=== PATIENT | male | born 1940 | race Caucasian/White ===

== ENCOUNTER 2022-04-07 05:19 | Inpatient (IN) ==
[2022-04-07] MEDS ORDERED: SODIUM CHLORIDE 0.9% 250 ML IV PRN (11:37)
[2022-04-07] MEDS ORDERED: NOREPINEPHRINE/D5W 4 MG/250 ML IV ONE (11:44)
[2022-04-07] MEDS ORDERED: STAT IV Infusion **Titration per Protocol STA (11:47)
--- NOTE | 2022-04-07 11:50 | Critical Care Consultation ---
Date of Consultation April 07, 2022 Assessment & Plan (1) Shock circulatory: (2) COPD with emphysema: (3) Peripheral vascular disease: (4) Acute abdomen: (5) Acute lower limb ischemia: (6) Lactic acidosis: (7) Acute blood loss anemia: Plan Reason Critically Ill: 81-year-old male past medical history of COPD, peripheral vascular disease was transferred from hospital with acute limb ischemia. Neuro - [facility] ICU: Negative Cardiac - -- Shock Could be intra-abdominal plus GI Needed with vasopressor support to keep MAP greater than 65 2D echo 10/07/2021: EF 55%, RV normal in size and function Respiratory - -- Acute on chronic hypoxic respiratory failure Continue without supervision to keep oxygen saturation between 90-92% --History of PE On rivaroxaban at home --COPD with emphysema Not on any inhalers at home Start the patient on Brovana and budesonide -- Pulmonary nodules Outpatient follow-up GI - -- Positive occult blood Continue to monitor RENAL/LYTES - Monitor BUNs/creatinine Avoid nephrotoxic medication - Taken with [facility] - Continue with ICU hyperglycemia protocol HEME - -- Acute on chronic anemia Status post 1 unit PRBC Keep hemoglobin greater than 7 ID - -- Give empiric antibiotic for at least 24 hours --Prophylaxis VTE: Heparin drip GI: Pantoprazole twice daily Lines: Right IJ Diet: N.p.o. Plan: Give 500 bolus of normal so followed by 150 mL NR Get CBC, CMP, mag and Phos along with lactate. Follow-up ABG Type and screen Start patient on budesonide and Brovana for underlying COPD with emphysema I will start the patient on empiric Zosyn given the acute abdomen. Monitor H&H, transfuse as needed Given the rigid abdomen. Urgent surgical consult has been placed. Dr. Carson personally spoke with Dr. Sousa Patient pending surgical intervention as soon as possible I have personally spent 63 minutes of critical care time in the direct management of this patient. This is a life/limb threatening event. This includes time spent evaluating patient, direct bedside care, chart review, placing orders, interpretation of diagnostic studies, discussion with consultants, patient, and family members, as well as other required patient management activities. This time is exclusive of all separately billable procedures, and teaching time and separate from and in addition to any other critical care service time. History of Present Illness Attending Physician: Velasquez Carson MD History of Present Illness 81-year-old male was transferred from an outside facility for severe abdominal pain and lower extremity pain Past medical history: COPD, peripheral vascular disease with known abdominal aortic aneurysm, dyslipidemia and hypertension At the time of examination patient was on 0.65 of Levophed with MAP in the 80s He had gotten 1 unit of blood as well as 1 L of bolus prior to coming to the hospital Patient was seen severe abdominal pain and in distress. He is a poor historian. Denies any nausea vomiting the only thing complaint was abdominal pain and pain going into his bilateral groin and lower legs. No shortness of breath No headache, no nausea, no vomiting Has been afebrile. Was actually hypothermic and bear hugger was started Allergies Allergy/AdvReac Type Severity Reaction Status Date / Time No Known Allergies Allergy Verified 03/26/22 16:34 Home Medications Medication Instructions Recorded Confirmed Type aspirin 81 mg capsule 81 mg PO QAM 03/26/22 03/26/22 History atorvastatin 40 mg tablet 40 mg PO HS 03/26/22 03/26/22 History cilostazol 50 mg tablet 50 mg PO BID 03/26/22 03/26/22 History esomeprazole magnesium 40 mg 40 mg PO QAM 03/26/22 03/26/22 History capsule,delayed release multivitamin-ferrous 1 tab PO QAM 03/26/22 03/26/22 History fumarate-folic acid 18 mg-400 mcg tablet (Centrum) nifedipine 60 mg tablet,extended 60 mg PO QAM 03/26/22 03/26/22 History release rivaroxaban 15 mg tablet (Xarelto) 15 mg PO BID 03/26/22 03/26/22 History Patient History Medical History (Updated 04/07/22 @ 12:42 by Ashley Quintero MD, [facility]) Anemia GERD (gastroesophageal reflux disease) controlled, stable per pt Melanoma hx of on right shoulder Myocardial Infarction hx of 30yrs ago--follows with [facility] Neuropathy bilt, 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--uses cane for ambulation On anticoagulant therapy xarelto Peripheral artery disease Surgical History (Updated 03/26/22 @ 16:46 by Annalisa Recinos RN) History of appendectomy History of bilateral cataract extraction History of cardiac cath 30yrs ago @ [facility]--no stents placed History of colonoscopy History of left inguinal hernia repair History of Mohs micrographic surgery for skin cancer History of tonsillectomy and adenoidectomy History of tooth extraction all teeth removed Family History (Updated 03/26/22 @ 16:46 by Annalisa Recinos RN) Other No family history of adverse response to anesthesia Social History Smoking Status: Current every day smoker Cigarettes Per Day: smokes pipe daily-advised; Second Hand Exposure: No; Hx Alcohol Use: Yes Hx Substance Use: No Preferred Language: Khmer Communication Ability: Effective Secret Code Expert Required: No Beliefs That Will Affect Care: None Current Living Situation: Spouse Feels Safe at Home: Yes Assistive Devices: Cane, Denture - Upper, Denture - Lower and Glasses Review of Systems Review of Systems: All systems reviewed & are unremarkable except as noted in HPI & below Physical Exam Physical Exam: Constitutional: In acute distress HEENT: EOMI, PERRLA Respiratory system: Decreased air entry bilaterally, no wheeze, rhonchi, positive crackles bilateral lower lobes CVS: S1-S2 positive, no murmurs or gallops Abdomen: Diffuse abdominal tenderness, positive rebound,, decreased bowel sounds x4 Extremities: +1 pulses bilaterally radialis, feeble pulse bilateral dorsalis pedis, no cyanosis, no edema, cold lower extremities Neuro: Awake alert oriented to self Psych: Normal mood and affect G/U: Positive [facility] C[facility] Level of Care Code Critical Care 1st 30-74 mins Diagnoses Shock circulatory R57.9 COPD with emphysema J43.9 Peripheral vascular disease I73.9 Acute abdomen R10.0 Acute lower limb ischemia I99.8 Lactic acidosis E87.20 Acute blood loss anemia D62 Time Spent (min) 63
[2022-04-07] MEDS ORDERED: VASOPRESSIN 20 UNITS in 0.9 % SODIUM CHLORIDE 100 ML IV SCH (12:00)
--- NOTE | 2022-04-07 12:23 | Procedure Note ---
Procedure Note Date of Service April 07, 2022 Note Procedure: Inserting ultrasound-guided central line maintenance: Dr. Ashley Quintero Indication: Hypotension Consent: Emergent consent was implied. Verbal consent was also obtained prior to procedure Anesthesia: 1% lidocaine without epinephrine local. Procedure: Consent was verified and timeout performed. Appropriate imaging studies were reviewed prior to the procedure. Under aseptic and sterile condition, right IJ vein was accessed under direct ultrasound guidance. Guidewire was confirmed to be within the lumen of vein with the help of ultrasound. Catheter was introduced via Seldinger technique. Guide a wire was removed. Good non-pulsatile blood flow was appreciated from all the ports. The catheter was placed at 16 cm and sutured in place. BioPatch was applied to the catheter and a sterile Tegaderm dressing was applied over the catheter with careful attention to sterility. Lung sliding was appreciated post procedure with the help ultrasound. Chest x-ray to follow Patient tolerated the procedure well. Blood loss: Less than 1 cc Complications: None Coding CPT Codes Tubes, Drains, and Vasc Access - Tubes, Drains, and Vasc Access: [id number] Place catheter in vein superior or inferior vena cava ([id number]) Tubes, Drains, and Vasc Access - Tubes, Drains, and Vasc Access: [id number] Ultrasound Guidance For Vascular ([id number]) [facility] [place] Procedure Codes (Charges) Tubes, Drains, and Vasc Access Procedure 1: Tubes, Drains, and Vasc Access: [id number] Place catheter in vein superior or inferior vena cava Procedure 2: Tubes, Drains, and Vasc Access: [id number] Ultrasound Guidance For Vascular
--- NOTE | 2022-04-07 12:31 | Electrocardiogram Report ---
Test Reason : Blood Pressure : / mmHG Vent. Rate : 083 BPM Atrial Rate : 078 BPM P-R Int : 000 ms QRS Dur : 102 ms QT Int : 424 ms P-R-T Axes : 000 087 -40 degrees QTc Int : 498 ms Sinus rhythm Low voltage QRS Diffuse Minor Nonspecific ST abnormality Abnormal ECG When compared with ECG of 03-APR-2022 12:19, No significant change Confirmed by Rodrigo Lemus ([id number]) on 04/07/2022 12:31:20 PM Referred By: Velasquez Carson Confirmed By:Rodrigo Lemus
[2022-04-07] MEDS ORDERED: DEXTROSE 50% 50 ML SYRINGE IV ONE (12:36)
[2022-04-07] MEDS: NOREPINEPHRINE/D5W 4 MG/250 ML PLCT IV SCH ×2 (12:40→14:31)
[2022-04-07] MEDS ORDERED: PANTOprazole 40 MG in SYRINGE 0 ML IV SCH (12:45)
[2022-04-07] MEDS ORDERED: D5W AND NSS 1,000 ML IV SCH (12:45)
[2022-04-07] MEDS ORDERED: PIPERACILLIN/TAZOBACTAM 4.5 GM in DEXTROSE 5% 100 ML IV ONE (12:45)
[2022-04-07 12:53] LABS: Base Excess VBG -22.8 mEq/L; HCO3 VBG 7 mmol/L; Oxygen Saturation VBG 75.5 %; PCO2 VBG 29 mmHg (38-50); PO2 VBG 52 mmHg; pH VBG < 7.00 (7.36-7.41)
[2022-04-07 12:55] LABS: iSTAT Arterial Blood Gas HCO3 7 meg/L (19-24); iSTAT Arterial Blood Gas pCO2 28 mmHg (35-46); iSTAT Arterial Blood Gas pH 7.02 (7.35-7.45); iSTAT Arterial Blood Gas pO2 39 mmHg (80-95); iSTAT Carbon Dioxide 8 mmol/L (24-31); iSTAT Site R Brachial
--- NOTE | 2022-04-07 12:57 | History & Physical Report ---
Date of Service April 07, 2022 Assessment & Plan (1) Acute abdomen: Plan: consult general surgery for acute abdomen (2) Peripheral vascular disease: Plan: Does not appear to have lower extremity acute ischemia. 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 Concern is for intestional ischemia Will re evaluate with contrast CT once he is stabalized. Admission and Anticipated Discharge Date Admission Date: April 07, 2022 History of Present Illness Chief Complaint: Abdominal pain Primary Care Provider: Becky Saavedra PA-C This is an 81yo male who was scheduled for dagoberto femoral endarterectomy with dagoberto iliac stenting next week. i received a call from [facility] about him developing left leg discomfort, coldness, and unable to move. He was transferred here for this. Upon arrival he was found to be hypotensive on levophed. He had blood running for an anemia of 7.0. He was complaining of abdominal pain. He can not get comfortable from his pain. He claims it started a few days prior to this with nausea. He cant remember his last BM. He denies any leg pain at this time. Allergies Allergy/AdvReac Type Severity Reaction Status Date / Time No Known Allergies Allergy Verified 03/26/22 16:34 Home Medications Medication Instructions Recorded Confirmed Type aspirin 81 mg capsule 81 mg PO QAM 03/26/22 03/26/22 History atorvastatin 40 mg tablet 40 mg PO HS 03/26/22 03/26/22 History cilostazol 50 mg tablet 50 mg PO BID 03/26/22 03/26/22 History esomeprazole magnesium 40 mg 40 mg PO QAM 03/26/22 03/26/22 History capsule,delayed release multivitamin-ferrous 1 tab PO QAM 03/26/22 03/26/22 History fumarate-folic acid 18 mg-400 mcg tablet (Centrum) nifedipine 60 mg tablet,extended 60 mg PO QAM 03/26/22 03/26/22 History release rivaroxaban 15 mg tablet (Xarelto) 15 mg PO BID 03/26/22 03/26/22 History Past Med/Surg History Medical History Anemia GERD (gastroesophageal reflux disease) controlled, stable per pt Melanoma hx of on right shoulder Myocardial Infarction hx of 30yrs ago--follows with [facility] Neuropathy bilt, 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--uses cane for ambulation On anticoagulant therapy xarelto Peripheral artery disease Surgical History History of appendectomy History of bilateral cataract extraction History of cardiac cath 30yrs ago @ [facility]--no stents placed History of colonoscopy History of left inguinal hernia repair History of Mohs micrographic surgery for skin cancer History of tonsillectomy and adenoidectomy History of tooth extraction all teeth removed Family History Other No family history of adverse response to anesthesia Social History Smoking Status: Current every day smoker Cigarettes Per Day: smokes pipe daily-advised; Second Hand Exposure: No; Hx Alcohol Use: Yes Hx Substance Use: No Preferred Language: Yi Communication Ability: Effective Mangle Feeder Required: No Beliefs That Will Affect Care: None Current Living Situation: Spouse Feels Safe at Home: Yes Assistive Devices: Cane, Denture - Upper, Denture - Lower and Glasses Review of Systems All systems reviewed & are unremarkable except as noted in HPI & below severe claudication Physical Exam Constitutional: + cachectic Respiratory: + abnormal respiratory effort and no respiratory distress Auscultation: + diminished lung sounds Cardiovascular: Rate/Rhythm: regular rate and regular rhythm Vessels: + femoral pulses abnormal (+1 on right, doppler on the left), + posterior tibial pulses abnormal and + dorsalis pedis pulses abnormal Extremities: + abnormal capillary refill Gastrointestinal (Abdomen): Percussion/Palpation: + abdomen tender, + guarding, + abdomen rigid and + abdominal aortic enlargement Musculoskeletal: Extremities: extremities normal to inspection Neurologic: CN's II-XI intact bilaterally Psychiatric: Orientation: alert Code Status & VTE Plan VTE Prophylaxis Plan VTE Prophylaxis will be ordered: Yes
[2022-04-07] MEDS ORDERED: Heparin IV Adult Wt-Based Standard *NO* Bolus Protocol IV ONE (13:04)
[2022-04-07 13:18] LABS: Partial Thromboplastin Ratio 2.8
[2022-04-07 13:19] LABS: Albumin Level 2.5 gm/dl (3.4-5.0); Alkaline Phosphatase 99 U/L (34-104); Anion Gap 30 (3-11); BUN Creatinine Ratio 25.7 (10-20); Bilirubin Direct 0.8 mg/dl (0-0.2); Bilirubin,Total 1.5 mg/dl (0.2-1.0); Blood Urea Nitrogen 37 mg/dl (6-23); Calcium 8.1 mg/dl (8.5-10.1); Carbon Dioxide 9 mmol/L (21-32); Chloride 100 mmol/L (98-107); Est GFR (African American) 51.7 ml/min; Est GFR (Non-African American) 44.6 ml/min; Glucose 68 mg/dl (70-99(Fasting)); Magnesium 3.1 mg/dl (1.7-2.4); Potassium 5.5 mmol/L (3.5-5.1); Sodium 139 mmol/L (136-145); Total Protein 4.1 gm/dl (6.0-8.3)
[2022-04-07 13:22] LABS: Partial Thromboplastin Time 77.1 Seconds (21.0-31.0)
[2022-04-07] MEDS ORDERED: HEPARIN SODIUM/DEXTROSE 25,000 UNITS/500 ML BAG IV SCH (13:30)
[2022-04-07] MEDS ORDERED: Patient's HEIGHT &/or WEIGHT Needed SCH (13:30)
[2022-04-07 13:32] LABS: Acanthocytes 2+; Basophils # (auto) 0.02 K/uL (0-0.2); Basophils % (auto) 0.2 %; Eosinophils # (auto) 0.01 K/uL (0-0.50); Eosinophils % (auto) 0.1 %; Hematocrit (blood only) 28.3 % (42.0-52.0); Hemoglobin 8.2 g/dl (14.0-18.0); Immature Granulocytes # (auto) 0.04 K/uL (0.01-0.20); Immature Granulocytes % (auto) 0.4 %; Lymphocytes # (auto) 0.49 K/uL (1.2-3.4); Lymphocytes % (auto) 4.6 %; Mean Corpuscular Hemoglobin 25.6 pg (25.0-34.0); Mean Corpuscular Volume 88.4 fL (80.0-100.0); Mean Platelet Volume 11.1 fL (9.4-12.4); Monocytes # (auto) 0.48 K/uL (0.11-0.59); Monocytes % (auto) 4.5 %; Neutrophils # (auto) 9.54 K/uL (1.40-6.50); Neutrophils % (auto) 90.2 %; Nucleated RBC # (auto) 0.08 K/uL (0-0.12); Nucleated RBC % (auto) 0.8 %; Platelet Count 90 K/uL (130-400); Platelet Estimate Decreased (Normal); Polychromasia 1+; RDW Coefficient of Variation 18.1 % (11.5-14.5); RDW Standard Deviation 57.9 fL (36.4-46.3); Toxic Vacuolation 1+; White Blood Count 10.58 K/ul (4.8-10.8)
--- NOTE | 2022-04-07 13:36 | XRay Report ---
SINGLE VIEW CHEST CLINICAL HISTORY: Central venous catheter placement FINDINGS: An AP, portable, upright chest radiograph is compared to study dated 04/03/2012. The examinat ion is degraded by portable technique and patient rotation. A right internal jugular central venous c atheter has been placed. The tip projects over the SVC. The heart is enlarged noting atherosclerotic calcification of the thoracic aorta. The pulmonary vasculature is noncongested. Enlargement of the ce ntral pulmonary vessels suggests pulmonary artery hypertension. Emphysema and chronic interstitial th ickening is similar to previous. There is elevation of the left hemidiaphragm with bibasilar scarring /atelectasis. No airspace consolidation or large pleural effusion is identified. No pneumothorax is s een. The skeletal structures are osteopenic. The bony thorax is grossly intact. IMPRESSION: 1. A right internal jugular central venous catheter has been placed as above. No pneumothorax is iden tified post procedure. 2. Cardiomegaly and emphysema with no acute cardiopulmonary abnormality identified. ACT 112: Negative or not required by law. Electronically signed by: Norberto Thorpe M.D. 04/07/2022 1:34 PM
[2022-04-07] MEDS ORDERED: SODIUM BICARB 8.4% INJ 50 MEQ/50 ML SYR IV ONE (13:38)
[2022-04-07 13:40] LABS: Alanine Aminotransferase > 2500 U/L (7-52); Aspartate Aminotransferase 5291 U/L (13-39); Creatine Kinase 3701 U/L (30-223)
[2022-04-07] MEDS ORDERED: SODIUM BICARB 8.4% INJ 50 MEQ/50 ML SYR IV STA ×2 (13:40→15:22)
[2022-04-07] MEDS ORDERED: SODIUM BICARBONATE 8.4% 150 MEQ in WATER, STERILE 1,000 ML IV SCH (13:45)
[2022-04-07] MEDS ORDERED: HEPARIN 25000 UNIT/500 ML D5W IV ONE (13:54)
--- NOTE | 2022-04-07 13:54 | Surgery Consultation ---
Date of Consultation April 07, 2022 Assessment & Plan (1) Mesenteric ischemia: 81-year-old male with known vascular disease and 1-1/2 weeks of abdominal pain transferred for initial concern for peripheral vascular disease with possible ischemic extremity. However it appears that he may have mesenteric ischemia. We had a discussion with some of the family who was present. He is a very high risk for surgery given his multiple medical problems as well as the current concern for possible mesenteric ischemia. Options include exploratory laparotomy with possible bowel resection and revascularization versus CT scan to reassess the bowel versus supportive care versus comfort measures. Patient's family is currently discussing the issue. As his labs come back it appears he is more sick and is suffering from shock liver. Based on his Candor score he would have greater than 35% mortality risk from surgery. Extensive discussion was had with the family, with Dr. Carson from vascular surgery, and Dr. Quintero from critical care. During this time the patient maxed out on his dosage of Levophed and his legs became very mottled. After this discussion, the family decided that they did not want to continue with any invasive measures and asked that he be put on comfort measures. Care was turned over to the ICU team who will initiate comfort measures after further discussion with the family. (2) Shock circulatory: (3) COPD with emphysema: (4) Peripheral vascular disease: History of Present Illness Reason for Consultation: Possible mesenteric ischemia Attending Physician: Velasquez Carson MD History of Present Illness 81-year-old male transferred from [facility] over concern for ischemic extremity. He has a known history of vascular disease and is followed by Dr. Carson with [facility] vascular. He had been scheduled for surgery with Dr. Carson in the near future. He started having increased left leg pain per the report and was seen in the emergency department in [place]. He had a CTA and was believed to have an ischemic extremity and was transferred to [facility]. Upon arrival he was noted to be hypotensive with a metabolic acidosis. He was complaining of abdominal pain over the past week and a half. Dr. Carson evaluated the patient and was concerned about abdominal source such as mesenteric ischemia. The ICU team was also consulted. He had a central line placed and was transfused 2 units of blood. He has family at the bedside. He appears to be becoming increasingly confused. Allergies Allergy/AdvReac Type Severity Reaction Status Date / Time No Known Allergies Allergy Verified 03/26/22 16:34 Home Medications Medication Instructions Recorded Confirmed Type aspirin 81 mg capsule 81 mg PO QAM 03/26/22 03/26/22 History atorvastatin 40 mg tablet 40 mg PO HS 03/26/22 03/26/22 History cilostazol 50 mg tablet 50 mg PO BID 03/26/22 03/26/22 History esomeprazole magnesium 40 mg 40 mg PO QAM 03/26/22 03/26/22 History capsule,delayed release multivitamin-ferrous 1 tab PO QAM 03/26/22 03/26/22 History fumarate-folic acid 18 mg-400 mcg tablet (Centrum) nifedipine 60 mg tablet,extended 60 mg PO QAM 03/26/22 03/26/22 History release rivaroxaban 15 mg tablet (Xarelto) 15 mg PO BID 03/26/22 03/26/22 History Patient History Medical History (Updated 04/07/22 @ 13:50 by Brant Sousa DO, FACS) Anemia GERD (gastroesophageal reflux disease) controlled, stable per pt Melanoma hx of on right shoulder Mesenteric ischemia Myocardial Infarction hx of 30yrs ago--follows with [facility] Neuropathy bilt, 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--uses cane for ambulation On anticoagulant therapy xarelto Peripheral artery disease Surgical History History of appendectomy History of bilateral cataract extraction History of cardiac cath 30yrs ago @ [facility]--no stents placed History of colonoscopy History of left inguinal hernia repair History of Mohs micrographic surgery for skin cancer History of tonsillectomy and adenoidectomy History of tooth extraction all teeth removed Family History Other No family history of adverse response to anesthesia Social History Smoking Status: Current every day smoker Cigarettes Per Day: smokes pipe daily-advised; Second Hand Exposure: No; Hx Alcohol Use: No Hx Substance Use: No Preferred Language: Frisian Communication Ability: Effective 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 Beliefs That Will Affect Care: None Current Living Situation: Spouse Feels Safe at Home: Yes Safety Concerns: Feels Safe At This Time Assistive Devices: Denture - Upper, Denture - Lower and Glasses Physical Exam Constitutional: + acute distress, + ill appearing and + cachectic Respiratory: + labored breathing Cardiovascular: Rate/Rhythm: regular rate and regular rhythm Gastrointestinal (Abdomen): Inspection/Auscultation: + abdominal surgical scar (Right lower quadrant) Percussion/Palpation: + abdomen tender, + guarding and + abdomen rigid; no hepatosplenomegaly Results & Data ([facility]) Vital Signs (Past 12 Hours) Vital Signs Temp Pulse Resp BP Pulse Ox O2 Del Method O2 Flow Rate 04/07/22 12:35 32.2 C L 82 24 95/74 L 96 Non-rebreather 10 Laboratory Results Laboratory Results - last 24 hr 04/07/22 04/07/22 04/07/22 12:22 12:22 12:22 WBC 10.58 RBC 3.20 L Hgb 8.2 L Hct 28.3 L MCV 88.4 MCH 25.6 MCHC 29.0 L RDW Std Deviation 57.9 H RDW Coeff of Vanna 18.1 H Plt Count 90 L MPV 11.1 Immature Gran % (Auto) 0.4 Neut % (Auto) 90.2 Lymph % (Auto) 4.6 Jackson % (Auto) 4.5 Eos % (Auto) 0.1 Baso % (Auto) 0.2 Neut # (Auto) 9.54 H Lymph # (Auto) 0.49 L Jackson # (Auto) 0.48 Eos # (Auto) 0.01 Baso # (Auto) 0.02 Immature Gran # (Auto) 0.04 Absolute Nucleated RBC 0.08 Nucleated RBC % (auto) 0.8 Toxic Vacuolation 1+ Platelet Estimate Decreased L Polychromasia 1+ Acanthocytes (Spur) 2+ APTT 77.1 H* PTT Ratio 2.8 Sample Site POC pH POC pCO2 POC pO2 POC HCO3 POC Total CO2 POC Base Excess POC ABG O2 Sat Ethan Test VBG pH VBG pCO2 VBG pO2 VBG HCO3 VBG O2 Saturation VBG Base Excess Sodium 139 Potassium 5.5 H Chloride 100 Carbon Dioxide 9 L* Anion Gap 30 H BUN 37 H Creatinine 1.44 H Est Cr Clr Drug Dosing Not Reportable Est GFR ( Amer) 51.7 Est GFR (Non-Af Amer) 44.6 BUN/Creatinine Ratio 25.7 H Glucose 68 L POC Glucose Calcium 8.1 L Phosphorus Magnesium 3.1 H Total Bilirubin 1.5 H Direct Bilirubin 0.8 H AST 5291 H ALT > 2500 H Alkaline Phosphatase 99 Lactate Dehydrogenase Total Creatine Kinase 3701 H Myoglobin Total Protein 4.1 L Albumin 2.5 L Blood Type Antibody Screen Crossmatch 04/07/22 04/07/22 04/07/22 12:22 12:22 12:22 WBC RBC Hgb Hct MCV MCH MCHC RDW Std Deviation RDW Coeff of Vanna Plt Count MPV Immature Gran % (Auto) Neut % (Auto) Lymph % (Auto) Jackson % (Auto) Eos % (Auto) Baso % (Auto) Neut # (Auto) Lymph # (Auto) Jackson # (Auto) Eos # (Auto) Baso # (Auto) Immature Gran # (Auto) Absolute Nucleated RBC Nucleated RBC % (auto) Toxic Vacuolation Platelet Estimate Polychromasia Acanthocytes (Spur) APTT PTT Ratio Sample Site POC pH POC pCO2 POC pO2 POC HCO3 POC Total CO2 POC Base Excess POC ABG O2 Sat Ethan Test VBG pH VBG pCO2 VBG pO2 VBG HCO3 VBG O2 Saturation VBG Base Excess Sodium Potassium Chloride Carbon Dioxide Anion Gap BUN Creatinine Est Cr Clr Drug Dosing Est GFR ( Amer) Est GFR (Non-Af Amer) BUN/Creatinine Ratio Glucose POC Glucose Calcium Phosphorus Magnesium Total Bilirubin Direct Bilirubin AST ALT Alkaline Phosphatase Lactate Dehydrogenase 70354 H Total Creatine Kinase Myoglobin Pending Total Protein Albumin Blood Type Pending Antibody Screen Pending Crossmatch See Detail 04/07/22 04/07/22 04/07/22 12:22 12:22 12:30 WBC RBC Hgb Hct MCV MCH MCHC RDW Std Deviation RDW Coeff of Vanna Plt Count MPV Immature Gran % (Auto) Neut % (Auto) Lymph % (Auto) Jackson % (Auto) Eos % (Auto) Baso % (Auto) Neut # (Auto) Lymph # (Auto) Jackson # (Auto) Eos # (Auto) Baso # (Auto) Immature Gran # (Auto) Absolute Nucleated RBC Nucleated RBC % (auto) Toxic Vacuolation Platelet Estimate Polychromasia Acanthocytes (Spur) APTT PTT Ratio Sample Site POC pH POC pCO2 POC pO2 POC HCO3 POC Total CO2 POC Base Excess POC ABG O2 Sat Ethan Test VBG pH < 7.00 L VBG pCO2 29 L VBG pO2 52 VBG HCO3 7 VBG O2 Saturation 75.5 VBG Base Excess -22.8 Sodium Potassium Chloride Carbon Dioxide Anion Gap BUN Creatinine Est Cr Clr Drug Dosing Est GFR ( Amer) Est GFR (Non-Af Amer) BUN/Creatinine Ratio Glucose POC Glucose 42 L* Calcium Phosphorus 11.0 H Magnesium Total Bilirubin Direct Bilirubin AST ALT Alkaline Phosphatase Lactate Dehydrogenase Total Creatine Kinase Myoglobin Total Protein Albumin Blood Type Antibody Screen Crossmatch 04/07/22 04/07/22 04/07/22 12:32 12:43 12:59 WBC RBC Hgb Hct MCV MCH MCHC RDW Std Deviation RDW Coeff of Vanna Plt Count MPV Immature Gran % (Auto) Neut % (Auto) Lymph % (Auto) Jackson % (Auto) Eos % (Auto) Baso % (Auto) Neut # (Auto) Lymph # (Auto) Jackson # (Auto) Eos # (Auto) Baso # (Auto) Immature Gran # (Auto) Absolute Nucleated RBC Nucleated RBC % (auto) Toxic Vacuolation Platelet Estimate Polychromasia Acanthocytes (Spur) APTT PTT Ratio Sample Site R Brachial POC pH 7.02 L* POC pCO2 28 L POC pO2 39 L POC HCO3 7 L POC Total CO2 8 L* POC Base Excess -24.0 L POC ABG O2 Sat 50.0 L Ethan Test NA VBG pH VBG pCO2 VBG pO2 VBG HCO3 VBG O2 Saturation VBG Base Excess Sodium Potassium Chloride Carbon Dioxide Anion Gap BUN Creatinine Est Cr Clr Drug Dosing Est GFR ( Amer) Est GFR (Non-Af Amer) BUN/Creatinine Ratio Glucose POC Glucose 52 L* 219 H Calcium Phosphorus Magnesium Total Bilirubin Direct Bilirubin AST ALT Alkaline Phosphatase Lactate Dehydrogenase Total Creatine Kinase Myoglobin Total Protein Albumin Blood Type Antibody Screen Crossmatch Diagnostic Findings I personally reviewed and interpreted the CT scan from the outside hospital as well as reviewed with one of the radiologist. There is no obvious evidence of bowel ischemia or necrosis, however the study is somewhat limited due to the arterial phase of the contrast. There is no free air or portal venous gas. Possible pneumatosis but difficult to interpret. PG Care Time/CCT Total # of Minutes Spent Total Time Spent with Patient: Total time spent is greater than 50% in coordination of care (as documented) at patient's floor/unit and/or counseling patient: Coding Level of Care Code 91139 Office/Outpt Visit, New Diagnoses Mesenteric ischemia K55.9 Shock circulatory R57.9 COPD with emphysema J43.9 Peripheral vascular disease I73.9 Time Spent (min) 120
[2022-04-07] MEDS ORDERED: NORMOSOL-R 500 ML IV ONE (14:05)
[2022-04-07] MEDS ORDERED: NORMOSOL-R 1,000 ML IV SCH (14:15)
[2022-04-07 14:22] LABS: iSTAT Art Bld Gas pCO2 Correct 22 mmHg (35-46); iSTAT Art Bld Gas pH Corrected 7.208 (7.35-7.45); iSTAT Arterial Blood Gas HCO3 9 meg/L (19-24); iSTAT Arterial Blood Gas pCO2 25 mmHg (35-46); iSTAT Arterial Blood Gas pH 7.16 (7.35-7.45); iSTAT Arterial Blood Gas pO2 118 mmHg (80-95); iSTAT Arterial Blood Gas pO2 C 97; iSTAT Carbon Dioxide 10 mmol/L (24-31); iSTAT Hematocrit 21 % (42-52); iSTAT Hemoglobin 7.1 g/dl (14.0-18.0); iSTAT Potassium 5.4 mmol/L (3.3-5.0); iSTAT Site L Brachial; iSTAT Sodium 134 mmol/L (135-144)
[2022-04-07] MEDS ORDERED: MoRPHine SULFATE 2 MG/ML CARP IV STA (14:35)
[2022-04-07] MEDS ORDERED: SODIUM CHLORIDE 0.9% 1000ML 500 ML IV ONE (15:23)
[2022-04-07 15:27] LABS: INR 2.8 (0.9-1.1); Prothrombin Time 27.8 Seconds (9.0-12.0)
--- NOTE | 2022-04-07 15:47 | Communication Note ---
Date of Service: April 07, 2022 Patient's condition has worsened. On two vasoconstrictors that are maxed out. Still requiring boluses of bicarb. Abdominal pain continues with morphine. Labs suggest shock liver. He also now has developed mottling of both lower extremities due to the vasoconstrictors combined with his significant PAD. Most likely to have ischemic bowel. Drs. Patel, Lars, and myself had a long conversation with the family and . If we underwent surgery, he would need an ex lap, some sort of revascularization if the bowel was ischemic, removal of all bowel, lower extremity revasc to both sides and most likely fasciotomies. He would have to have a second look surgery and most likely some sort of major amputation in the future. There is a high probablitity of needing dialysis post op. He would also be on a vent for an extended period of time. With his conditon as it stands at this point, he is at high risk of not tolerating anesthesia and intubation. His prognosis even with surgery is extremely poor. In view of this his family decided not to procede with any aggressive measures and just to make him comfortable.
[2022-04-07] MEDS ORDERED: LORazepam 2 MG/1 ML VIAL IV PRN (15:50)
[2022-04-07] MEDS ORDERED: ONDANSETRON INJ 2 MG/ML 2 ML VIAL IV PRN (15:50)
[2022-04-07] MEDS ORDERED: MoRPHine BOLUS from BAG IV PRN (15:50)
[2022-04-07] MEDS ORDERED: LORazepam 0.5 MG TAB PO PRN (15:50)
[2022-04-07] MEDS ORDERED: ONDANSETRON 4 MG OD TAB SL PRN (15:50)
--- NOTE | 2022-04-07 15:55 | Communication Note ---
Date of Service: April 07, 2022 Critical care addendum: Patient labs came back patient was in shock liver with LDH 11,500 he also had MACARIO and hyperkalemia likely from severe acidosis He had a bicarb of 9 and pH of 7 Patient was given 2 A of bicarb started on bicarb drip. He was given another 2 A of bicarb later on Patient was given total 1 L bolus. He was started on D5 normal saline as well history he was getting hypoglycemic. He has maxed out on Levophed and vasopressin. Epi was planned to be started General surgery as well as vascular surgery saw the patient and deemed that he is too high risk for any procedure given the multiorgan failure that he is in. This information was relayed to the family by them. Family decided not to pursue surgery. I went bedside and spoke with the as a decision maker. Again explained the critical condition of the patient and offered comfort measures to keep the patient pain-free and comfortable. She understands the critical situation and would like the patient to be comfortable and let nature takes its course We will start the patient on morphine drip All questions inquiries of the patient's and family were answered in depth Dr. Carson was made aware I have personally spent additional 35 minutes of critical care time in the direct management of this patient. This is a life/limb threatening event. This includes time spent evaluating patient, direct bedside care, chart review, placing orders, interpretation of diagnostic studies, discussion with consultants, patient, and family members, as well as other required patient management activities. This time is exclusive of all separately billable procedures, and teaching time and separate from and in addition to any other critical care service time. Please note the above document was generated using voice recognition software. It may contain grammatical, syntax or spelling errors. Coding Level of Care Code Critical Care ea addt'l 30 min Time Spent (min) 35
[2022-04-07] MEDS ORDERED: MoRPHine SULF/NSS 250 MG/250 ML BTL IV SCH (16:00)
[2022-04-07] MEDS ORDERED: ICU Protocol for HYPERglycemia SCH (16:30)
[2022-04-07] MEDS ORDERED: PIPERACILLIN/TAZOBACTAM 3.375 GM in DEXTROSE 5% 100 ML IV SCH (18:00)
[2022-04-07] MEDS ORDERED: FORMOTEROL 20 MCG/2 ML VIAL INH SCH (19:00)
[2022-04-07] MEDS ORDERED: BUDESONIDE 0.25 MG/2 ML VIAL (PULMICORT) NEB SCH (19:00)
--- NOTE | 2022-04-07 19:16 | Death Pronouncement Note ---
Date of Service April 07, 2022 Pronouncement Note Admission Date Admission Date: April 07, 2022 Date and Time of Date of : 04/07/22 Time of : 18:45 PCOD Preliminary cause of : Shock Contributing Factors (1) Mesenteric ischemia: (2) Shock circulatory: (3) COPD with emphysema: (4) Peripheral vascular disease: (5) Lactic acidosis: (6) Metabolic acidosis: Hospital Course Hospital Course: 81-year-old male was transferred from an outside facility for severe abdominal pain and lower extremity pain. Arrived on vasopressors, Bicarbonate Infusion, and acute abdominal pain. Patient had increasing vasopressor requirements as well as worsening organ dysfunction, and acidosis. Primary service consulted general surgery as well for evaluation and ICU for critical care management. Following the worsening organ dysfunction and co-morbidities of the patient and likely extensive surgical care and need for repeat operations it was deemed that his ocutome would be extremely poor as well as high risk of during these cases. Family discussion was had with intensive care staff, vascular surgery staff, and general surgery staff with the family, and patient was transitioned to comfort care. Patient at 1844. Summary Additional details: Date: 04/07/22 Time: 1844 I was contacted by nursing staff regarding the patients rythm of asystole at 184 and cease of respirations. This was following focus on palliative/comfort care and withdraw of life sustaining measures earlier today. Assessment: I presented to the patients room for evaluation. Upon assessment, the patient was found to be in a terminal state. Pupils were fixed and dilated without response. No palpable pulses appreciated and no electrical rythm on telemetry. No spontaneous breaths noted. Heart sounds were absent. No response to painful stimuli. Time of : 1844 as pronounced by myself. Family was present at bedside. Appropriate response to grief appreciated. Condolences provided. Questions were addressed and emotional support was provided. Patients primary service (Vascular Surgery- Dr. Carson) was contacted and made aware of patient demise. Pronouncement section of the Certificate was filled out and signed by myself. Cause of : Primary - Shock Secondary - acidemosis Contributing Causes of - bowel/limb ischemia Please feel free to contact me with any questions regarding the above-mentioned course. Additional Data Attending physician: Velasquez Carson MD
--- NOTE | 2022-04-08 07:44 | Discharge Summary ---
Date of Service April 08, 2022 Admission HPI Per Admitting Provider This is an 81yo male who was scheduled for dagoberto femoral endarterectomy with dagoberto iliac stenting next week. i received a call from [facility] about him developing left leg discomfort, coldness, and unable to move. He was transferred here for this. Upon arrival he was found to be hypotensive on levophed. He had blood running for an anemia of 7.0. He was complaining of abdominal pain. He can not get comfortable from his pain. He claims it started a few days prior to this with nausea. He cant remember his last BM. He denies any leg pain at this time. Admission Exam Per Admitting Provider Constitutional: + cachectic Respiratory: + abnormal respiratory effort and no res piratory distress Auscultation: + diminished lung sounds Cardiovascular: Rate/Rhythm: regular rate and regular rhythm Vessels: + femoral pulses abnormal (+1 on right, doppler on the left), + posterior tibial pulses abnormal and + dorsalis pedis pulses abnormal Extremities: + abnormal capillary refill Gastrointestinal (Abdomen): Percussion/Palpation: + abdomen tender, + guarding, + abdomen rigid and + abdominal aortic enlargement Musculoskeletal: Extremities: extremities normal to inspection Neurologic: CN's II-XI intact bilaterally Psychiatric: Orientation: alert Principal Diagnosis Ischemic bowel Discharge Exam Upon assessment, the patient was found to be in a terminal state. Pupils were fixed and dilated without response. No palpable pulses appreciated and no electrical rythm on telemetry. No spontaneous breaths noted. Heart sounds were absent. No response to painful stimuli. Time of : 184 as pronounced Discharge Data Allergies Allergy/AdvReac Type Severity Reaction Status Date / Time No Known Allergies Allergy Verified 03/26/22 16:34 Consultations 04/07/22 11:39 Consult Enamel Buffer Stat 04/07/22 11:40 Consult General Surgery Stat Procedures Performed Operation Date: 04/07/22 14:20 <No data on this case meets the specified criteria> Ordered Studies 04/07/22 08:34 EV angio UE BI Routine 04/07/22 11:47 US point of care ultrasound Urgent Total Time Total Time Spent Total Time Spent (In Minutes): 0 Discharge Plan Discharge Items Patient Disposition: Other Date/Time: 04/07/22 18:45
== END 2022-04-07 20:35 | disposition expired | DRG 291 ==
LOC: 1E 11:23